=== PATIENT | female | born 2000 | race African-American/Black ===

== ENCOUNTER 2021-06-23 06:58 | Emergency (ER) | payer BC ==
[~2021-06-23] VITALS: Ht 170.2 cm; Wt 55.0 kg
[2021-06-23] MEDS ORDERED: MORPHINE SULFATE 4 MG/ML CPJ (NOT FOR IM USE) IV STA (07:47)
[2021-06-23] MEDS ORDERED: ONDANSETRON HCL 4MG/2ML INJ IV STA (07:47)
[2021-06-23 08:16] LABS: BASOPHILS % 0.5 % (0.0-2.0); EOSINOPHILS % 0.1 % (0.0-5.0); HEMATOCRIT. 31.9 % (36.0-48.0); HEMOGLOBIN. 10.6 g/dL (12.0-16.0); LYMPHOCYTES % 16.2 % (20.0-50.0); MEAN CORPUSCULAR HEMOGLOBIN 28.5 pg (28.0-32.0); MEAN CORPUSCULAR VOLUME 85.9 fL (81.0-99.0); MEAN PLATELET VOLUME 10.1 fl (7.4-10.4); MONOCYTES % 4.3 % (2.0-8.0); NEUTROPHILS % 78.9 % (40.0-76.0); PLATELET 147 x1000/uL (130-400); RED BLOOD CELL COUNT 3.72 mill/uL (4.2-5.4); RED CELL DISTRIBUTION WIDTH 13.7 % (11.6-14.6)
[2021-06-23 08:21] LABS: CHLORIDE 109 mEq/L (98-107)
[2021-06-23] MEDS ORDERED: IBUP-2028 PO (12:00)
[2021-06-23 12:01] VITALS: BP 129/62
== END 2021-06-23 12:21 | disposition home or self-care (01) ==
LOC: ER 06:58
DX: R07.89 Other chest pain (principal); R11.2 Nausea with vomiting, unspecified; N94.6 Dysmenorrhea, unspecified
CPT/HCPCS: 36415; 71045; 80053; 83880; 84484; 85025; 85379; 93005; 96374; 96375; 99285; J2270; J2405

== ENCOUNTER 2021-09-16 19:06 | Emergency (ER) | payer BC ==
[~2021-09-16 19:06] MED LIST: IBUP-2028 PO
== END 2021-09-16 20:18 | disposition left against medical advice (07) ==
LOC: ER 19:06
DX: Z53.21 Procedure and treatment not carried out due to patient leaving prior to being seen by health care provider (principal)